=== PATIENT | female | born 1970 | race Caucasian/White ===

== ENCOUNTER 2017-04-15 13:43 | Inpatient (IN) | payer OTHER ==
[2017-04-15 16:42] LABS: ADD MAN DIFF? NO
[2017-04-15 16:46] LABS: WHITE BLOOD COUNT 9.3 10^3/ul (4.8-10.8)
[2017-04-15 16:46] LABS: ABNORMAL IP MESSAGE 1; BASOPHILS % 0.3 % (0.0-2.0); EOSINOPHILS # 0.1 10^3/ul (0.0-0.5); EOSINOPHILS % 1.4 % (0.0-7.0); HEMATOCRIT 30.9 % (37.0-47.0); HEMOGLOBIN 8.1 g/dl (12.0-16.0); LYMPHOCYTES # 1.7 10^3/ul (0.8-2.9); MEAN CORPUSCULAR HEMOGLOBIN 17.5 pg (29.0-33.0); MEAN CORPUSCULAR HGB CONC 26.2 g/dl (32.0-37.0); MEAN CORPUSCULAR VOLUME 66.9 fl (82.0-101.0); MEAN PLATELET VOLUME 9.5 fl (7.4-10.4); MONOCYTE # 0.7 10^3/ul (0.3-0.9); MONOCYTES % 7.7 % (0.0-11.0); NEUTROPHIL # 6.7 10^3/ul (1.6-7.5); NEUTROPHILS % 72.3 % (39.0-77.0); PLATELET COUNT 337 10^3/UL (140-415); RED BLOOD COUNT 4.62 10^6/ul (4.20-5.40); RED CELL DISTRIBUTION WIDTH 18.2 % (11.5-14.5); RETICULOCYTE COUNT # 0.058 X10^6 (0.020-0.110); RETICULOCYTE COUNT % 1.3 % (0.5-1.5); RETICULOCYTE RBC 4.62
[2017-04-15 16:51] LABS: POSITIVE DIFF @See below
[2017-04-15 17:02] LABS: INR 0.92; PROTIME 12.4 Sec (11.9-14.9)
[2017-04-15 17:03] LABS: PARTIAL THROMBOPLASTIN TIME 25.7 Sec (25.0-35.0)
[2017-04-15 17:04] LABS: IRON 14 ug/dl (35-150)
[2017-04-15 17:06] LABS: ALANINE AMINOTRANSFERASE 27 IU/L (13-69); ALBUMIN/GLOBULIN RATIO 1.25; ALKALINE PHOSPHATASE 75 IU/L (42-121); ANION GAP 14 (8-16); ASPARTATE AMINO TRANSFERASE 18 IU/L (15-46); BLOOD UREA NITROGEN 11 mg/dl (7-20); CALCIUM 9.7 mg/dl (8.4-10.2); CARBON DIOXIDE 26 mmol/L (21-31); CHLORIDE 105 mmol/L (97-110); CHOL/HDL RATIO 3.3 RATIO; CHOLESTEROL 155 mg/dl (100-200); CREATININE 0.65 mg/dl (0.44-1.00); GLUCOSE 85 mg/dl (70-220); HDL CHOLESTEROL 46 mg/dl (34-88); LDL CHOLESTEROL,CALCULATED 75 mg/dl; POTASSIUM 3.8 mmol/L (3.5-5.1); SODIUM 141 mmol/L (135-144); TOTAL PROTEIN 7.2 g/dl (6.1-8.1); TRIGLYCERIDES 172 mg/dl (0-149)
[2017-04-15 17:16] LABS: % IRON SATURATION 2 % SAT (22-52); TOTAL IRON BINDING CAPACITY 563 ug/dl (241-421)
[2017-04-15 17:24] LABS: FREE T3 4.27 pg/ml (2.77-5.27); T3 UPTAKE 29.1 % (23.5-40.5)
[2017-04-15 17:37] LABS: TRIIODOTHYRONINE 4.92 ng/ml (0.97-1.69)
[2017-04-15 17:38] LABS: THYROID STIMULATING HORMONE < 0.015 MIU/L (0.465-4.680)
[2017-04-15 17:41] LABS: FERRITIN 3.9 ng/ml (6.2-137.0)
[2017-04-15] MEDS: BARIUM SULF 2% 450 ML BTL (BERRY SMOOTHIE) PO (18:06)
[2017-04-15 18:11] LABS: FOLATE 17.3 ng/ml (2.8-20.0)
[2017-04-15 20:13] LABS: ADD UMIC YES; UR ASCORBIC ACID 40 mg/dL (NEGATIVE); UR BACTERIA FEW /HPF (NONE SEEN); UR BILIRUBIN (Dip) NEGATIVE (NEGATIVE); UR BLOOD (Dip) NEGATIVE (NEGATIVE); UR CLARITY CLEAR (CLEAR); UR COLOR YELLOW (YELLOW); UR GLUCOSE (Dip) NEGATIVE (NEGATIVE); UR KETONES (Dip) NEGATIVE (NEGATIVE); UR LEUKOCYTE ESTERASE (Dip) 1+ Leu/ul (NEGATIVE); UR MUCUS FEW /HPF (NONE SEEN); UR NITRITE (Dip) NEGATIVE (NEGATIVE); UR RBC 1 /HPF (0-5); UR SQUAMOUS EPITHELIAL CELL FEW /HPF (FEW); UR TOTAL PROTEIN (Dip) NEGATIVE (NEGATIVE); UR UROBILINOGEN (Dip) NEGATIVE (NEGATIVE); UR WBC 2 /HPF (0-5)
[2017-04-15] MEDS ORDERED: ONDANSETRON 4 MG INJ (20:25)
[2017-04-15] MEDS: MAGNESIUM HYDROXIDE 30ML CUP PO (21:51)
[2017-04-15] MEDS: HYDROCORTISONE 25 MG SUPP PR (21:52)
[2017-04-15] MEDS: ALPRAZOLAM 0.5 MG TAB PO (22:00)
[2017-04-15] MEDS: ZOLPIDEM 5 MG TAB PO (22:17)
[2017-04-16 01:19] LABS: IMMEDIATE SPIN CROSSMATCH 1 2
[2017-04-16] MEDS: INFLUENZA VIRUS VACCINE 0.5 ML (DISPENSING) IM* (09:44)
[2017-04-16] MEDS: HYDROCORTISONE 25 MG SUPP PR ×2 (09:44→21:20)
[2017-04-16] MEDS: ACETAMINOPHEN 325 MG TAB PO ×2 (12:15→18:05)
[2017-04-16] MEDS ORDERED: TRIMETHOPRIM/SULFAMETHOX (DS) TAB PO (18:00)
[2017-04-16] MEDS ORDERED: MICONAZOLE 200 MG VAG SUPP VAG (21:00)
[2017-04-16] MEDS: TRIMETHOPRIM/SULFAMETHOX (DS) TAB PO (21:20)
[2017-04-17] MEDS: ALPRAZOLAM 0.5 MG TAB PO ×2 (01:37→22:57)
[2017-04-17] MEDS: ZOLPIDEM 5 MG TAB PO (01:38)
[2017-04-17] MEDS: MAGNESIUM HYDROXIDE 30ML CUP PO (04:28)
[2017-04-17 05:57] LABS: ADD MAN DIFF? NO
[2017-04-17] MEDS: PANTOPRAZOLE (EC) 40 MG TAB PO (06:08)
[2017-04-17 06:11] LABS: ABNORMAL IP MESSAGE 1; BASOPHILS % 0.4 % (0.0-2.0); EOSINOPHILS # 0.3 10^3/ul (0.0-0.5); EOSINOPHILS % 3.6 % (0.0-7.0); HEMATOCRIT 33.5 % (37.0-47.0); HEMOGLOBIN 9.6 g/dl (12.0-16.0); LYMPHOCYTES # 1.4 10^3/ul (0.8-2.9); LYMPHOCYTES % 16.4 % (15.0-51.0); MEAN CORPUSCULAR HGB CONC 28.7 g/dl (32.0-37.0); MEAN CORPUSCULAR VOLUME 69.6 fl (82.0-101.0); MEAN PLATELET VOLUME 9.9 fl (7.4-10.4); MONOCYTE # 0.7 10^3/ul (0.3-0.9); MONOCYTES % 8.6 % (0.0-11.0); NEUTROPHIL # 5.9 10^3/ul (1.6-7.5); NEUTROPHILS % 70.6 % (39.0-77.0); PLATELET COUNT 313 10^3/UL (140-415); RED BLOOD COUNT 4.81 10^6/ul (4.20-5.40); RED CELL DISTRIBUTION WIDTH 21.7 % (11.5-14.5)
[2017-04-17 06:11] LABS: WHITE BLOOD COUNT 8.4 10^3/ul (4.8-10.8)
[2017-04-17 06:21] LABS: POSITIVE DIFF @See below
[2017-04-17 06:58] LABS: ANION GAP 14 (8-16); BLOOD UREA NITROGEN 14 mg/dl (7-20); CALCIUM 8.7 mg/dl (8.4-10.2); CARBON DIOXIDE 23 mmol/L (21-31); CHLORIDE 106 mmol/L (97-110); CREATININE 0.64 mg/dl (0.44-1.00); GLUCOSE 93 mg/dl (70-220); POTASSIUM 4.5 mmol/L (3.5-5.1); SODIUM 138 mmol/L (135-144)
[2017-04-17] MEDS: TRIMETHOPRIM/SULFAMETHOX (DS) TAB PO ×2 (08:14→20:59)
[2017-04-17] MEDS: DILTIAZEM (CD) 120 MG CAP PO (08:14)
[2017-04-17] MEDS: HYDROCORTISONE 25 MG SUPP PR ×2 (08:15→22:04)
[2017-04-17 14:22] LABS: FOLLICLE STIMULATING HORMONE 3.1 mIU/mL
[2017-04-17] MEDS: ACETAMINOPHEN 325 MG TAB PO (15:03)
[2017-04-17] MEDS: BISACODYL 10 MG SUPP PR (22:04)
[2017-04-17] MEDS: SOD FERRIC GLUC COMPLX 125 MG in SOD CHLORIDE 0.9% 100 ML IVPB (23:42)
[2017-04-17] MEDS: MEDROXYPROGESTERONE 150 MG INJ SYG IM (23:47)
[2017-04-18] MEDS: ZOLPIDEM 5 MG TAB PO (01:01)
[2017-04-18] MEDS: HYDROCODONE/APAP (10/325) TAB PO (01:01)
[2017-04-18 05:12] LABS: ADD MAN DIFF? NO
[2017-04-18 05:18] LABS: ABNORMAL IP MESSAGE 1; BASOPHILS % 0.4 % (0.0-2.0); EOSINOPHILS # 0.2 10^3/ul (0.0-0.5); EOSINOPHILS % 2.7 % (0.0-7.0); HEMATOCRIT 34.7 % (37.0-47.0); HEMOGLOBIN 9.6 g/dl (12.0-16.0); LYMPHOCYTES # 1.4 10^3/ul (0.8-2.9); LYMPHOCYTES % 16.8 % (15.0-51.0); MEAN CORPUSCULAR HEMOGLOBIN 19.5 pg (29.0-33.0); MEAN CORPUSCULAR HGB CONC 27.7 g/dl (32.0-37.0); MEAN CORPUSCULAR VOLUME 70.5 fl (82.0-101.0); MONOCYTE # 0.7 10^3/ul (0.3-0.9); MONOCYTES % 8.7 % (0.0-11.0); PLATELET COUNT 354 10^3/UL (140-415); RED BLOOD COUNT 4.92 10^6/ul (4.20-5.40); RED CELL DISTRIBUTION WIDTH 21.7 % (11.5-14.5)
[2017-04-18 05:18] LABS: WHITE BLOOD COUNT 8.4 10^3/ul (4.8-10.8)
[2017-04-18] MEDS: PANTOPRAZOLE (EC) 40 MG TAB PO (06:13)
[2017-04-18] MEDS: ALPRAZOLAM 0.5 MG TAB PO (06:15)
[2017-04-18 06:59] LABS: POSITIVE DIFF @See below
[2017-04-18] MEDS: HYDROCORTISONE 25 MG SUPP PR ×2 (08:08→21:00)
[2017-04-18] MEDS: TRIMETHOPRIM/SULFAMETHOX (DS) TAB PO ×2 (08:41→21:00)
[2017-04-18] MEDS: DILTIAZEM (CD) 120 MG CAP PO (08:41)
[2017-04-18] MEDS: NA PHOSPHATE/BIPHOS 133 ML ENEMA PR (08:41)
[2017-04-18 11:00] LABS: OCCULT BLOOD STOOL NEGATIVE (NEGATIVE)
[2017-04-18] MEDS: HYDROmorphONE 2 MG/ML SYG IV ×2 (16:40→23:59)
[2017-04-18] MEDS: PROPYLTHIOURACIL 50 MG TAB PO (17:57)
[2017-04-18] MEDS ORDERED: MIDAZOLAM 1 MG/ML 2 ML INJ (21:41)
[2017-04-18] MEDS ORDERED: FENTAnyl 50 MCG/ML VIAL (21:41)
[2017-04-18] MEDS ORDERED: ROCURONIUM 50 MG INJ (21:49)
[2017-04-18] MEDS ORDERED: SUGAMMADEX SODIUM 200 MG/2 ML VIAL IV (21:49)
[2017-04-18] MEDS ORDERED: LIDOCAINE 2% (SDV) 5 ML INJ (21:49)
[2017-04-18] MEDS ORDERED: SUCCINYLCHOLINE CHLORIDE 100 MG/5 ML SYG IV (21:49)
[2017-04-18] MEDS ORDERED: PROPOFOL 20 ML (21:49)
[2017-04-18] MEDS ORDERED: ONDANSETRON 4 MG INJ (21:52)
[2017-04-18] MEDS ORDERED: DEXAMETHASONE 4 MG/ML 1 ML INJ (21:53)
[2017-04-18] MEDS ORDERED: METOCLOPRAMIDE 10 MG INJ (21:53)
[2017-04-18] MEDS ORDERED: MEPERIDINE 25 MG INJ IV (22:30)
[2017-04-18] MEDS ORDERED: HYDROmorphONE (0.2 MG/ML) 10ML SYG IV ×3 (22:30)
[2017-04-18] MEDS ORDERED: ALBUTEROL 0.083% (NEB) 2.5 MG/3 ML AMP HHN (22:30)
[2017-04-18] MEDS ORDERED: FENTAnyl 50 MCG/ML VIAL IV ×2 (22:30)
[2017-04-18] MEDS ORDERED: DIPHENHYDRAMINE 50 MG INJ IV (22:30)
[2017-04-18] MEDS: FENTAnyl 50 MCG/ML VIAL IV (23:30)
[2017-04-19] MEDS: SOD FERRIC GLUC COMPLX 125 MG in SOD CHLORIDE 0.9% 100 ML IVPB (00:20)
[2017-04-19] MEDS: ACETAMINOPHEN 325 MG TAB PO ×2 (01:38→10:13)
[2017-04-19] MEDS: PROPYLTHIOURACIL 50 MG TAB PO ×4 (01:40→12:50)
[2017-04-19] MEDS: HYDROmorphONE 2 MG/ML SYG IV (04:22)
[2017-04-19 06:11] LABS: ANION GAP 16 (8-16); BLOOD UREA NITROGEN 15 mg/dl (7-20); CALCIUM 8.7 mg/dl (8.4-10.2); CARBON DIOXIDE 22 mmol/L (21-31); CHLORIDE 103 mmol/L (97-110); CREATININE 0.55 mg/dl (0.44-1.00); GLUCOSE 166 mg/dl (70-220); SODIUM 137 mmol/L (135-144)
[2017-04-19] MEDS: PANTOPRAZOLE (EC) 40 MG TAB PO (06:31)
[2017-04-19] MEDS: TRIMETHOPRIM/SULFAMETHOX (DS) TAB PO (08:20)
[2017-04-19] MEDS: HYDROCORTISONE 25 MG SUPP PR (08:20)
[2017-04-19] MEDS: DILTIAZEM (CD) 120 MG CAP PO (08:21)
[2017-04-19] MEDS: HYDROCODONE/APAP (10/325) TAB PO ×3 (08:25→18:20)
[2017-04-19] MEDS: NA PHOSPHATE/BIPHOS 133 ML ENEMA PR (08:25)
[2017-04-19] MEDS: ALPRAZOLAM 0.5 MG TAB PO (12:08)
[2017-04-19] MEDS: SALMETEROL/FLUTICASONE 250/50 INHA INH (14:06)
[2017-04-20] MEDS ORDERED: METHIMAZOLE 5 MG TAB PO (09:00)
== END 2017-04-19 18:52 | disposition home or self-care (01) | DRG 983 ==
LOC: MS3 13:43 → MS1 04-17 13:05
PROC: 0U5B8ZZ Destruction of Endometrium, Via Natural or Artificial Opening Endoscopic (ICD-10-PCS; principal; 2017-04-18 19:30)
PROC: 0UDB8ZX Extraction of Endometrium, Via Natural or Artificial Opening Endoscopic, Diagnostic (ICD-10-PCS; 2017-04-18 19:30)
PROC: 30233N1 Transfusion of Nonautologous Red Blood Cells into Peripheral Vein, Percutaneous Approach (ICD-10-PCS; 2017-04-18 21:34)
DX: D50.0 Iron deficiency anemia secondary to blood loss (chronic) (principal); I10 Essential (primary) hypertension; N92.4 Excessive bleeding in the premenopausal period; D25.0 Submucous leiomyoma of uterus; E05.90 Thyrotoxicosis, unspecified without thyrotoxic crisis or storm; E78.5 Hyperlipidemia, unspecified; J45.909 Unspecified asthma, uncomplicated; N83.202 Unspecified ovarian cyst, left side; J45.40 Moderate persistent asthma, uncomplicated
CPT/HCPCS: 36430; 71045; 74176; 76856; 80048; 80053; 80061; 81001; 82270; 82607; 82671; 82728; 82746; 83001; 83540; 84436; 84443; 84479; 84480; 84481; 84702; 84703; 85025; 85045; 85610; 85730; 86850; 86900; 86901; 86920; 87086; 90686; 93005